=== PATIENT | female | born 1965 | race Caucasian/White ===

== ENCOUNTER → 2016-11-24 | Outpatient (CLI) | payer OTHER ==
--- NOTE | 2016-11-24 15:07 | KCIC ---
PROCEDURE MRI cervical spine without contrast. HISTORY Neck pain. Surgery 10 years ago. Right radiculopathy for 10 days. TECHNIQUE Sagittal T1, sagittal T2, sagittal STIR, axial T2, and axial T2 gradient sequences are provided. COMPARISON None at this institution. FINDINGS There is reversal of cervical lordosis. There is 2 millimeters of anterolisthesis at C3-C4, 3 millimeters of anterolisthesis at C4-C5, and 1-2 millimeters of retrolisthesis at C5-C6. There is no worrisome marrow lesion. There is no cord signal abnormality. The cervicomedullary junction is unremarkable. Degenerative findings by individual level are as follows: C2-C3: There is facet hypertrophy which is greater on the right. There is mild right foraminal narrowing. C3-C4: There is facet hypertrophy which is greater on the right. There is at least mild and more likely [id number] right foraminal narrowing. C4-C5: There is uncinate process spurring. There is facet hypertrophy which is greater on the right. There is no high-grade canal or foraminal compromise. C5-C6: There is a disc osteophyte complex and uncinate process spurring. There is buckling of ligamentum flavum midline AP diameter of the thecal sac measures 10 millimeters, minimally narrowed. Foraminal narrowing bilaterally appears high-grade. C6-C7: Disc osteophyte complex has right paracentral protruding component. There is mild foraminal narrowing. C7-T1: There is no canal or foraminal compromise. There is a partial laminectomy defect on the right. There is mild motion degradation. In addition, the patient moved between axial and sagittal series, reference lines are slightly off. IMPRESSION Degenerative changes in the cervical spine are greatest at C5-C6. Electronically signed by: Jorge Hoff MD (Nov 24, 2016 15:06:03)
== END | disposition home or self-care (01) ==
LOC: KCIC MRI 13:40
PROVIDERS: ATTEND Physician Assistant Medical
DX: M47.892 Other spondylosis, cervical region (principal)
CPT/HCPCS: 72141

== ENCOUNTER → 2018-09-04 | Outpatient (CLI) | payer OTHER ==
--- NOTE | 2018-09-04 11:09 | KCIC ---
MRI Lumbar Spine without contrast History: Lumbago for 4 months, pain into the left hip Technique: Multiplanar, multi sequential noncontrast MR imaging was performed of the lumbar spine. Comparison: None Findings: Lumbar vertebral body stature and AP alignment are within normal limits. Conus terminates at T12-L1. There is moderate to severe degenerative disc disease L1-2, mild degenerative disc disease L2-3, L3-4, L5-S1 and mild disc desiccation L4-5. There is also degenerative disc disease of the visualized T11-12 level, also minimally at T12-L1. T11-12: This level was not included on the axial images. There is a shallow posterior protrusion without significant spinal stenosis. T12-L1: There is shallow posterior protrusion with associated annular tear without spinal stenosis. Neural foramina are adequate. L1-L2: There is minimal disc osteophyte complex and bulge. Neural foramina and spinal canal are adequate. There is small hemangioma of the left L1 vertebral body superiorly. L2-L3: There is minimal disc osteophyte complex and bulge. Spinal canal and neural foramina are overall adequate. There is mild facet hypertrophic change. L3-L4: There is minimal disc osteophyte complex and bulge. Spinal canal is adequate. There is very mild inferior narrowing of the distal left neural foramen, no displacement of the exiting left L3 nerve root, right neural foramen overall adequate. L4-L5: There is mild buckling of the ligamentum flavum and right facet hypertrophic change. Neural foramina and spinal canal are adequate. L5-S1: Spinal canal and right neural foramen are adequate. There is a small extrusion extending above the intervertebral disc space in the left neural foramen about 6 mm AP by about 3 to 4 mm CC by about 5 to 6 mm transverse. There is contact of the exiting left L5 nerve root, moderate to severe narrowing of the left neural foramen. Impression: 1. There is a small extrusion extending above the intervertebral disc space in the left L5-S1 neural foramen with contact of the exiting left L5 nerve root. 2. There is multilevel thoracolumbar degenerative disc disease greatest at L1-2. There is minimal spondylosis. There is no significant lumbar spinal stenosis. Electronically signed by: Khoi Martinez MD (09/04/2018 11:05 AM) [email or web address]
== END | disposition home or self-care (01) ==
LOC: KCIC MRI 09:44
PROVIDERS: ATTEND Physician Assistant Medical
DX: M51.35 Other intervertebral disc degeneration, thoracolumbar region (principal); M47.896 Other spondylosis, lumbar region; M51.37 Other intervertebral disc degeneration, lumbosacral region; M51.27 Other intervertebral disc displacement, lumbosacral region; M25.78 Osteophyte, vertebrae; D18.09 Hemangioma of other sites
CPT/HCPCS: 72148

== ENCOUNTER → 2018-09-22 | Outpatient (CLI) | payer OTHER ==
[~2018-09-22] MED LIST: ALBU2.5V8 INH; ATOR20TA PO; CYCL10TA2 PO; ESOM40CA PO; IOHEXOL 240 MG/ML 50ML VIAL. PO ONE; IOHEXOL 300 MG/ML 100ML VIAL. IV ONE; METH10TA2 PO; NAPR-683 PO
--- NOTE | 2018-09-22 16:08 | KCIC ---
CT study of the pelvis with contrast Clinical indications: Numbness of left groin and labia. History of diverticulosis. History of hernia repair. TECHNIQUE: After IV infusion of 89 cc of Omnipaque 300, helical CT scanning of the pelvis was performed from the iliac crest down to the perineum. GI contrast was administered per mouth. RS compliance Statement One or more of the following individualized dose reduction techniques were utilized for this study: 1. Automated exposure control 2. Adjustment of the mA and/or kV according to patient size 3. Use of iterative reconstruction technique COMPARISON: May 19, 2018 CT study. FINDINGS: The appendix is normal. Mild fecal retention is seen within the rectosigmoid region. No bowel wall thickening or perirectal or pericolonic inflammatory change is seen. No abscess or free fluid or free air is seen. No enlarged pelvic lymphadenopathy is evident. Uterus is surgically absent. Neither ovary is visualized. Urinary bladder wall is smooth. No inguinal hernia is evident. No lytic process is seen. IMPRESSION: No acute abnormality is evident. Electronically signed by: Garret Garcia MD (09/22/2018 4:03 PM) [place] [id number]
== END | disposition home or self-care (01) ==
LOC: KCIC CT 09:40
PROVIDERS: ATTEND Physician Assistant Medical
DX: R20.0 Anesthesia of skin (principal); K59.00 Constipation, unspecified; J45.909 Unspecified asthma, uncomplicated; Z86.718 Personal history of other venous thrombosis and embolism
CPT/HCPCS: 72193; Q9966; Q9967